=== PATIENT | female | born 1940 | race Caucasian/White ===

== ENCOUNTER → 2024-05-29 | Outpatient (REF) | payer MEDICARE ==
[~2024-05-29] MED LIST: ACETAMINOPHEN325 M1 PO; ALBUTEROL0.63 MG/3 NEB; AZITHROMYCIN250 MG PO; BENZONATATE100 MG PO; CYMBALTA30 MG PO; DICYCLOMINE HCL20 MG PO; FAMOTIDINE20 MG PO; FEROCON CAPSUL1 EACH PO; FOLIC ACID0.8 MG PO; FOSAMAX70 MG PO; LIPITOR10 MG PO; LOSARTAN-HCTZ1 EACH PO; MIRALAX17 GM PO; ONDANSETRON ODT4 MG PO
== END ==
LOC: CT 12:27
PROVIDERS: ATTEND Internal Medicine Critical Care Medicine
DX: R91.1 Solitary pulmonary nodule (principal); I67.89 Other cerebrovascular disease; G47.33 Obstructive sleep apnea (adult) (pediatric)
CPT/HCPCS: 71250

== ENCOUNTER → 2024-09-11 | Day surgery (SDC) | payer MEDICARE ==
[2024-09-05 15:45] LABS: BASOPHILS # (AUTO) 0.1 (0.0-0.1); BASOPHILS % 1.3 % (0.0-1.0); EOSINOPHILS # (AUTO) 0.2 (0.0-0.4); EOSINOPHILS % 2.9 % (0.0-6.0); HEMOGLOBIN 10.6 g/dL (12.0-16.0); LYMPHOCYTES # (AUTO) 1.8 (1.0-3.2); LYMPHOCYTES % 33.5 % (18.0-39.1); MEAN CORPUSCULAR HEMOGLOBIN 28.6 pg (28-32); MEAN CORPUSCULAR HGB CONC 31.2 g/dL (31-35); MEAN CORPUSCULAR VOLUME 91.6 fL (81-99); MONOCYTES # (AUTO) 0.5 (0.2-0.8); MONOCYTES % 9.5 % (4.4-11.3); NEUTROPHILS # (AUTO) 2.9 (2.1-6.9); NEUTROPHILS % 52.6 % (38.7-80.0); PLATELET COUNT 201 x10e3/uL (140-360); RED BLOOD COUNT 3.71 x10e6/uL (3.6-5.1); RED CELL DISTRIBUTION WIDTH 23.8 % (11.7-14.4); WHITE BLOOD COUNT 5.47 x10e3/uL (4.8-10.8)
[~2024-09-11] MED LIST changes: +ALLOPURINOL100 MG PO; +ASPIRIN81 MG PO; +CALTRATE 600 W1 EACH; +CARVEDILOL12.5 MG PO; +LATANOPROST2.5 ML OP; +LIDOCAINE HCL 2% LOCAL INJ 5 ML SDV VIAL INJ ONE; +LYRICA75 MG PO; +MEMANTINE HCL5 MG PO; +PROPOFOL IV EMULSION 10 MG/ML 20 ML VIAL ONE; +PROPOFOL IV EMULSION 50 ML IV ONE; +REFRESH PLUS1 EACH OU; +RESTASIS1 EACH OU; +VITAMIN B121000 MCG PO
[2024-09-11] MEDS: LACTATED RINGER'S 1,000 ML ONE (09:12)
[2024-09-11 13:22] VITALS: TEMP 97.8
[2024-09-11 13:50] VITALS: BP 132/56; PULSE 65; RESP 16; O2SAT 98
== END | disposition home or self-care (01) ==
LOC: OR 08:49
PROVIDERS: ATTEND Internal Medicine Gastroenterology
DX: D50.0 Iron deficiency anemia secondary to blood loss (chronic) (principal); K63.5 Polyp of colon; K29.01 Acute gastritis with bleeding; K50.90 Crohn's disease, unspecified, without complications; K44.9 Diaphragmatic hernia without obstruction or gangrene; K57.30 Diverticulosis of large intestine without perforation or abscess without bleeding; G47.33 Obstructive sleep apnea (adult) (pediatric); I10 Essential (primary) hypertension; E78.5 Hyperlipidemia, unspecified; J45.909 Unspecified asthma, uncomplicated; E66.01 Morbid (severe) obesity due to excess calories; R01.1 Cardiac murmur, unspecified; M54.9 Dorsalgia, unspecified; I69.398 Other sequelae of cerebral infarction; R53.1 Weakness; M10.9 Gout, unspecified; F03.90 Unspecified dementia, unspecified severity, without behavioral disturbance, psychotic disturbance, mood disturbance, and anxiety; Z88.6 Allergy status to analgesic agent; Z88.0 Allergy status to penicillin; Z01.810 Encounter for preprocedural cardiovascular examination; Z01.812 Encounter for preprocedural laboratory examination; Z79.82 Long term (current) use of aspirin; Z79.899 Other long term (current) drug therapy; Z80.0 Family history of malignant neoplasm of digestive organs
CPT/HCPCS: 36415; 43239; 45380; 45385; 85025; 93005; J2003; J2704 ×2; J7121; 45378

== ENCOUNTER → 2024-10-05 | Outpatient (REF) | payer MEDICARE ==
[~2024-10-05] MED LIST changes: -LIDOCAINE HCL 2% LOCAL INJ 5 ML SDV VIAL INJ ONE; -PROPOFOL IV EMULSION 10 MG/ML 20 ML VIAL ONE; -PROPOFOL IV EMULSION 50 ML IV ONE
== END ==
LOC: DX 08:13
PROVIDERS: ATTEND Nurse Practitioner
DX: D64.9 Anemia, unspecified (principal)
CPT/HCPCS: 74250